=== PATIENT | female | born 1960 | race Caucasian/White ===

== ENCOUNTER 2017-12-27 09:34 | Emergency (ER) | payer OTHER ==
[~2017-12-27] VITALS: Ht 160 cm; Wt 98.4 kg
[2017-12-27 09:43] VITALS: BP 150/84
--- NOTE | 2017-12-27 09:46 | NUR ---
Patient to bed 12 at this time.
--- NOTE | 2017-12-27 09:47 | NUR ---
Gave report to Yakov GUSMAN
--- NOTE | 2017-12-27 09:52 | NUR ---
PATIENT PRESENTS TO ED WITH RIGHT SUPERIOR TIB/FIB AREA REDNESS PRURITUS X 3 DAYS . . DENIES N/V/D; SKIN IS PINK/WARM/DRY; AAOX4 WITH EVEN AND STEADY GAIT; LUNGS CLEAR BL; HR EVEN AND REGULAR; PT DENIES ANY FEVER, CP, SOB, OR COUGH AT THIS TIME; PATIENT STATES PAIN OF 0/10 AT THIS TIME; VSS; PATIENT POSITIONED FOR COMFORT; HOB ELEVATED; BEDRAILS UP X2; BED DOWN. ER MD MADE AWARE OF PT STATUS.
[2017-12-27] MEDS ORDERED: KETOROLAC 60 MG/2 ML VIAL IM ONE (09:55)
[2017-12-27 10:15] VITALS: BP 150/84
--- NOTE | 2017-12-27 10:16 | NUR ---
Patient discharged with v/s stable. Written and verbal after care instructions given and explained. Patient alert, oriented and verbalized understanding of instructions. Ambulatory with steady gait. All questions addressed prior to discharge. ID band removed. Patient advised to follow up with PMD. Rx of KEFLEX/BACTRIM/BENADRYL/MOTRIN given. Patient educated on indication of medication including possible reaction and side effects. Opportunity to ask questions provided and answered.
== END 2017-12-27 10:16 | disposition home or self-care (01) ==
LOC: MED 09:34
DX: L03.115 Cellulitis of right lower limb (principal); Z90.49 Acquired absence of other specified parts of digestive tract
CPT/HCPCS: 96372; 99283; J1885

== ENCOUNTER 2020-01-07 07:37 | Emergency (ER) | payer OTHER, SELFPAY ==
[~2020-01-07] VITALS: Ht 157.5 cm; Wt 86.2 kg
[2020-01-07 07:38] VITALS: BP 178/84
--- NOTE | 2020-01-07 07:44 | NUR ---
C/O SORE THROAT AND BODYACHES--- PT'S NIECE TESTED POSITIVE FOR COVIG-19 RECENTLY; PT CONCERNED BECAUSE SHE HAS BEEN WITH HER LATELY
--- NOTE | 2020-01-07 08:26 | NUR ---
covid-19 swab collected and sent to lab
--- NOTE | 2020-01-07 08:26 | NUR ---
Patient discharged with v/s stable. Written and verbal after care instructions given and explained. Patient alert, oriented and verbalized understanding of instructions. Ambulatory with steady gait. All questions addressed prior to discharge. ID band removed. Patient advised to follow up with PMD. Rx of tessalon perles/ albuterol given. Patient educated on indication of medication including possible reaction and side effects. Opportunity to ask questions provided and answered.
[2020-01-07 08:27] VITALS: BP 163/91
== END 2020-01-07 08:26 | disposition home or self-care (01) ==
LOC: MED 07:37 → EEVIPCON 07:37 → MED 08:26
DX: J06.9 Acute upper respiratory infection, unspecified (principal); Z20.828 Contact with and (suspected) exposure to other viral communicable diseases; R03.0 Elevated blood-pressure reading, without diagnosis of hypertension; J45.909 Unspecified asthma, uncomplicated; Z90.49 Acquired absence of other specified parts of digestive tract
CPT/HCPCS: 99283; U0003

== ENCOUNTER 2020-11-20 19:09 | Emergency (ER) | payer OTHER, SELFPAY ==
[~2020-11-20] VITALS: Ht 160 cm; Wt 97.5 kg
[2020-11-20 19:21] VITALS: BP 136/73
--- NOTE | 2020-11-20 19:23 | NUR ---
To ED bed 11
--- NOTE | 2020-11-20 19:30 | NUR ---
states " tonsils hurt" and now right eye and right ear hurts x 1 day. pt describes ear pain as throbbing. denies any sob. pt afebrile. pmhx: denies nkda
--- NOTE | 2020-11-20 20:55 | NUR ---
ERMD AT BEDSIDE EXAMINING PATIENT
[2020-11-20] MEDS ORDERED: AMOX1TAB8 PO (21:26)
[2020-11-20] MEDS ORDERED: BENZ1LOZ98 MM (21:26)
[2020-11-20] MEDS ORDERED: IBUP-2213 PO (21:26)
[2020-11-20] MEDS ORDERED: ACET-2619 PO (21:35)
--- NOTE | 2020-11-20 21:38 | NUR ---
Patient discharged with v/s stable. Written and verbal after care instructions given and explained. Patient alert, oriented and verbalized understanding of instructions. Ambulatory with to car. All questions addressed prior to discharge. ID band removed. Patient advised to follow up with PMD. Rx of AMOXICILLIN, CEPACOL, ACETAMINOPHEN given. Patient educated on indication of medication including possible reaction and side effects. Opportunity to ask questions provided and answered.
[2020-11-20 21:39] VITALS: BP 136/73
== END 2020-11-20 21:38 | disposition home or self-care (01) ==
LOC: MED 19:09
DX: J03.90 Acute tonsillitis, unspecified (principal); J45.909 Unspecified asthma, uncomplicated; Z79.899 Other long term (current) drug therapy
CPT/HCPCS: 99283